=== PATIENT | male | born 1955 | race American Indian/Alaskan Native ===

== ENCOUNTER 2019-08-31 21:27 | Inpatient (IN) | payer SELFPAY ==
[2019-08-31 21:31] VITALS: BMI 28.6
[2019-08-31 23:42] LABS: BASO % 0.5 % (0-2.0); EOS % 2.6 % (0-4.5); HEMATOCRIT 43.8 % (35.4-49); HEMOGLOBIN 14.8 GM/dL (11.7-16.9); LYMPH % 48.7 % (8-40); MCH 29.8 pg (25.7-33.7); MCHC 33.7 g/dl (32.0-35.9); MEAN CELL VOLUME 88.5 fl (80-96); MEAN PLT VOLUME 8.2 fl (7.5-11.1); MONO % 10.6 % (3.8-10.2); NEUT % 37.6 % (42.8-82.8); PLATELET COUNT 255 K/MM3 (134-434); RBC 4.95 M/mm3 (4.00-5.60); RDW 13.6 % (11.9-15.9); WHITE BLOOD COUNT 5.7 K/mm3 (4.0-10.0)
[2019-08-31 23:43] LABS: EPI CELLS 0.6 /HPF (0-5/HPF); HYALINE CASTS 1 /lpf (0-8); URINE APPEARANCE CLEAR; URINE BACTERIA 0.7 /hpf (NEGATIVE); URINE BILIRUBIN NEGATIVE (NEGATIVE); URINE COLOR YELLOW; URINE GLUCOSE (UA) NEGATIVE (NEGATIVE); URINE KETONE NEGATIVE (NEGATIVE); URINE LEUK ESTERASE TRACE (NEGATIVE); URINE NITRITE NEGATIVE (NEGATIVE); URINE PROTEIN NEGATIVE (NEGATIVE); URINE RBC 0 /hpf (0-4); URINE UROBILINOGEN 0.2 mg/dL (0.2-1.0); URINE WBC 1 /hpf (0-5)
[2019-09-01 00:43] LABS: ALBUMIN 4.2 g/dl (3.4-5.0); ALK PHOS 71 U/L (45-117); ANION GAP 10 MMOL/L (8-16); BILIRUBIN,TOTAL 0.8 mg/dL (0.2-1); BLOOD UREA NITROGEN 19.9 mg/dL (7-18); CALCIUM 9.4 mg/dL (8.5-10.1); CHLORIDE 99 mmol/L (98-107); CO2 25 mmol/L (21-32); CREATININE 0.9 mg/dL (0.55-1.3); GLUCOSE,RANDOM 105 mg/dL (74-106); SGOT/AST 43 U/L (15-37); SGPT/ALT 71 U/L (13-61); SODIUM 135 mmol/L (136-145); TOT PROT 7.6 g/dl (6.4-8.2)
--- NOTE | 2019-09-01 00:46 | PDOC ---
History of Present Illness - General Chief Complaint: Weakness Stated Complaint: WEAKNESS Time Seen by Provider: 08/31/19 21:59 History Source: Patient Exam Limitations: No Limitations Past History - Past Medical History Allergies/Adverse Reactions: Allergies Allergy/AdvReac Type Severity Reaction Status Date / Time No Known Allergies Allergy Verified 08/31/19 21:31 COPD: No Diabetes: Yes HTN: Yes - Psycho Social/Smoking Cessation Hx Smoking History: Never smoked *Physical Exam - Vital Signs Last Vital Signs Temp Pulse Resp BP Pulse Ox 97.4 F L 89 18 144/77 96 08/31/19 21:29 08/31/19 21:29 08/31/19 21:29 08/31/19 21:29 08/31/19 21:29 - Physical Exam General Appearance: No: Apparent Distress HEENT: positive: EOMI, VIVEK Respiratory/Chest: positive: Lungs Clear, Normal Breath Sounds. negative: Respiratory Distress Cardiovascular: positive: Regular Rhythm, Regular Rate, S1, S2. negative: Murmur Gastrointestinal/Abdominal: positive: Normal Bowel Sounds, Soft. negative: Tender, Distended, Guarding, Rebound Neurologic: positive: arts administrator II-XII NML intact, Fully Oriented, Alert, Normal Mood/ Affect, Motor Strength 5/5, Other (normal gait) ED Treatment Course - LABORATORY CBC & Chemistry Diagram: 08/31/19 23:20 08/31/19 23:20 - ADDITIONAL ORDERS Additional order review: Laboratory Results 08/31/19 08/31/19 23:28 23:20 POC Glucometer 112 Urine Color Yellow Urine Appearance Clear Urine pH 6.0 Ur Specific [place] 1.011 Urine Protein Negative Urine Glucose (UA) Negative Urine Ketones Negative Urine Blood Negative Urine Nitrite Negative Urine Bilirubin Negative Urine Urobilinogen 0.2 Ur Leukocyte Esterase Trace Urine WBC (Auto) 1 Urine RBC (Auto) 0 Urine Casts (Auto) 1 U Epithel Cells (Auto) 0.6 Urine Bacteria (Auto) 0.7 08/31/19 08/31/19 23:28 23:20 RBC 4.95 MCV 88.5 MCHC 33.7 RDW 13.6 MPV 8.2 Neutrophils % 37.6 L Lymphocytes % 48.7 H Monocytes % 10.6 H Eosinophils % 2.6 Basophils % 0.5 POC Glucometer 112 - RADIOLOGY Radiology Studies Ordered: Category Date Time Status HEAD CT WITHOUT CONTRAST [CT] Stat CT Scan 08/31/19 22:25 Taken Medical Decision Making - Medical Decision Making 64-year-old male history of hypertension and diabetes presents for feeling generalized weakness and fatigue x2 days. Patient states 2 days ago while he was working (he states he was standing at a [employer]) he felt lightheaded and had slight tongue heaviness which resolved in a few seconds. Patient did not go to the ER to get evaluated at that time. Patient comes in today as still feeling fatigue. Denies fever, URI symptoms, shortness of breath, chest pain, abdominal pain, vomiting, visual/gait changes, numbness/tingling/weakness of the extremities. Patient is a former smoker (he quit 30 years ago; patient states he used to smoke 2 packs/day for around 10 years). EKG: NSR at 79 bpm, no ST-T changes Labs reviewed and unremarkable CT head shows subacute stroke along the right frontal parietal lobe Patient will be admitted 09/01/19 00:42 Discharge - Discharge Information Problems reviewed: Yes Clinical Impression/Diagnosis: Stroke Qualifiers: CVA mechanism: unspecified Qualified Code(s): I63.9 - Cerebral infarction, unspecified Condition: Stable - Admission Yes - Follow up/Referral - Patient Discharge Instructions - Post Discharge Activity
--- NOTE | 2019-09-01 00:49 | PDOC ---
NIH Stroke Scale - Initial Evaluation Level of consciousness: Alert Ask patient the month and their age: Answers both correctly Ask patient to open & close eyes; make fist and let go: Obeys both correctly Best gaze (horizontal eye movement): Normal Visual field testing: No visual field loss Facial paresis (Show teeth/raise eyebrows/close eyes tight): Normal symmetrical movement Motor Function: Left Arm: Normal Motor Function: Right Arm: Normal (extends arm 90 (or 45) degrees for 10 seconds without drift Motor Function: Left Leg: Normal (extends leg 30 degrees for 5 seconds without drift) Motor Function: Right Leg: Normal (extends leg 30 degrees for 5 seconds without drift) Limb Ataxia: No ataxia Sensory(Use pinprick test arms,legs,trunk,face/side to side): Normal Best language (Describe picture, name items, read sentences): No Aphasia Dysarthria (read several words): Normal articulation Extinction and Inattention: No abnormality - Total Score NIH Stroke Scale Score: 0
[2019-09-01 01:05] LABS: POTASSIUM 4.2 mmol/L (3.5-5.1)
[2019-09-01] MEDS ORDERED: ASPIRIN 81 MG CHEWABLE TABLETS PO ONE (02:07)
[2019-09-01] MEDS ORDERED: SODIUM CHLORIDE 1,000 ML IV SCH (02:15)
--- NOTE | 2019-09-01 02:15 | HP ---
CHIEF COMPLAINT: Fatigue PCP: Dr. Colton Whyte HISTORY OF PRESENT ILLNESS: 64M with PMH of DM and HTN who presents today with 2 day history of worsening fatigue. Patient reports that two days earlier he was working behind the [employer] and he felt lightheaded and then his tongue became heavy for approximately 1 minute. This has never occurred to him before, and has not occurred since. Patient describes his body feeling more tired since that event. He also notes that he is slower to adjust his lateral gaze. He denies any dizziness, any changes in sensation, nausea, vomiting, headaches, and recent illnesses. Patient does endorse a significant alcohol history where he binges for periods at a time and then stops drinking. He does not feel that his weakness and tiredness is related to his alcohol intake in anyway. ER course was notable for: (1) CT Head was done which showed wedge shaped area of low attenuation in right frontoparietal lobe near the convexity likely representing infarction possibly subacute. There is a possible intraluminal thrombus present as well. Recent Travel: Denies PAST MEDICAL HISTORY: DM II, HTN FAMILY MEDICAL HISTORY: Cardiac issues in father's side of the family, HTN, and HLD PAST SURGICAL HISTORY: None Social History: Smokin pack year history, quit smoking 30 years ago Alcohol:200 ml of alcohol a day, 3x a day in recent weeks. Did not mention when last drink was. Drugs: Denies Allergies No Known Allergies Allergy (Verified 08/31/19 21:31) HOME MEDICATIONS: Metformin 500 mg BID PO REVIEW OF SYSTEMS CONSTITUTIONAL: generalized weakness Absent: fever, chills, diaphoresis, , malaise, loss of appetite, weight change HEENT: Absent: rhinorrhea, nasal congestion, throat pain, throat swelling, difficulty swallowing, mouth swelling, ear pain, eye pain, visual changes CARDIOVASCULAR: Absent: chest pain, syncope, palpitations, irregular heart rate, lightheadedness , peripheral edema RESPIRATORY: Absent: cough, shortness of breath, dyspnea with exertion, orthopnea, wheezing, stridor, hemoptysis GASTROINTESTINAL: Absent: abdominal pain, abdominal distension, nausea, vomiting, diarrhea, constipation, melena, hematochezia GENITOURINARY: Absent: dysuria, frequency, urgency, hesitancy, hematuria, flank pain, genital pain MUSCULOSKELETAL: Absent: myalgia, arthralgia, joint swelling, back pain, neck pain SKIN: Absent: rash, itching, pallor ENDOCRINE: Absent: unexplained weight gain, unexplained weight loss, heat intolerance, cold intolerance NEUROLOGIC: Absent: headache, focal weakness or paresthesias, dizziness, unsteady gait, seizure, mental status changes, bladder or bowel incontinence PHYSICAL EXAMINATION Vital Signs - 24 hr 08/31/19 21:29 Temperature 97.4 F L Pulse Rate 89 Respiratory 18 Rate Blood Pressure 144/77 O2 Sat by Pulse 96 Oximetry (%) GENERAL: Awake, alert, and fully oriented, in no acute distress. HEAD: Normal with no signs of trauma. EYES: Pupils equal, round and reactive to light, extraocular movements intact, sclera anicteric, conjunctiva clear. No lid lag. EARS, NOSE, THROAT: Ears normal, nares patent, oropharynx clear without exudates. Moist mucous membranes. NECK: Normal range of motion, supple without lymphadenopathy, JVD, or masses. LUNGS: Breath sounds equal, clear to auscultation bilaterally. No wheezes, and no crackles. No accessory muscle use. HEART: Regular rate and rhythm, normal S1 and S2 without murmur, rub or gallop. ABDOMEN: Soft, nontender, not distended, normoactive bowel sounds, no guarding, no rebound, no masses. No hepatomegaly or splenomegaly. MUSCULOSKELETAL: Normal range of motion at all joints. No bony deformities or tenderness. . UPPER EXTREMITIES: 2+ pulses, warm, well-perfused. No cyanosis. No clubbing. No peripheral edema. LOWER EXTREMITIES: 2+ pulses, warm, well-perfused. No calf tenderness. No peripheral edema. NEUROLOGICAL: Cranial nerves II-XII intact. Normal speech. Normal gait. 5/5 strength upper and lower extremities. PSYCHIATRIC: Cooperative. Good eye contact. Appropriate mood and affect. SKIN: Warm, dry, normal turgor, no rashes or lesions noted, normal capillary refill. Laboratory Results - last 24 hr 08/31/19 08/31/19 08/31/19 23:20 23:20 23:20 WBC 5.7 RBC 4.95 Hgb 14.8 Hct 43.8 MCV 88.5 MCH 29.8 MCHC 33.7 RDW 13.6 Plt Count 255 MPV 8.2 Absolute Neuts (auto) 2.1 Neutrophils % 37.6 L Lymphocytes % 48.7 H Monocytes % 10.6 H Eosinophils % 2.6 Basophils % 0.5 Nucleated RBC % 0 Sodium 135 L Potassium 4.2 Chloride 99 Carbon Dioxide 25 Anion Gap 10 BUN 19.9 H Creatinine 0.9 Est GFR (CKD-EPI)AfAm 104.98 Est GFR (CKD-EPI)NonAf 90.58 POC Glucometer Random Glucose 105 Calcium 9.4 Total Bilirubin 0.8 AST 43 H ALT 71 H Alkaline Phosphatase 71 Troponin I < 0.02 Total Protein 7.6 Albumin 4.2 Urine Color Yellow Urine Appearance Clear Urine pH 6.0 Ur Specific [place] 1.011 Urine Protein Negative Urine Glucose (UA) Negative Urine Ketones Negative Urine Blood Negative Urine Nitrite Negative Urine Bilirubin Negative Urine Urobilinogen 0.2 Ur Leukocyte Esterase Trace Urine WBC (Auto) 1 Urine RBC (Auto) 0 Urine Casts (Auto) 1 U Epithel Cells (Auto) 0.6 Urine Bacteria (Auto) 0.7 08/31/19 23:28 WBC RBC Hgb Hct MCV MCH MCHC RDW Plt Count MPV Absolute Neuts (auto) Neutrophils % Lymphocytes % Monocytes % Eosinophils % Basophils % Nucleated RBC % Sodium Potassium Chloride Carbon Dioxide Anion Gap BUN Creatinine Est GFR (CKD-EPI)AfAm Est GFR (CKD-EPI)NonAf POC Glucometer 112 Random Glucose Calcium Total Bilirubin AST ALT Alkaline Phosphatase Troponin I Total Protein Albumin Urine Color Urine Appearance Urine pH Ur Specific [place] Urine Protein Urine Glucose (UA) Urine Ketones Urine Blood Urine Nitrite Urine Bilirubin Urine Urobilinogen Ur Leukocyte Esterase Urine WBC (Auto) Urine RBC (Auto) Urine Casts (Auto) U Epithel Cells (Auto) Urine Bacteria (Auto) ASSESSMENT/PLAN: 64 M with PMH of HTN, DM II, EtOH abuse, who presents with generalized weakness and transient episode of tongue heaviness. On imaging of his brain, there is is a right frontoparietal area of low attenuation. 1)CT Head shows right frontoparietal area of low attenuation -Admit to telemetry -Atorvastatin 40 mg PO -ASA 81 mg PO -NPO -Speech and Swallow Evaluation -F/U Echo -F/U carotid doppler -F/U Brain MRI -Neurology consulted 2)DM II -Holding home metformin -Insulin Siding Scale 3) Transaminitis -AST 43 -ALT 71 -Hep panel pending 4)Hx of Alcohol abuseb -Ativan as needed -Thiamine -Folate -Multivitamin -IV fluid hydratoin DVT: Heparin 5000 unit SQ TID Visit type - Emergency Visit Emergency Visit: Yes ED Registration Date: 09/01/19 Care time: The patient presented to the Emergency Department on the above date and was hospitalized for further evaluation of their emergent condition. - New Patient This patient is new to me today: Yes Date on this admission: 09/01/19 - Critical Care Critical Care patient: No ATTENDING PHYSICIAN STATEMENT I saw and evaluated the patient. I reviewed the resident's note and discussed the case with the resident. I agree with the resident's findings and plan as documented. SUBJECTIVE: OBJECTIVE: ASSESSMENT AND PLAN:
--- NOTE | 2019-09-01 02:16 | PDOC ---
*Physical Exam - Vital Signs Last Vital Signs Temp Pulse Resp BP Pulse Ox 97.4 F L 89 18 144/77 96 08/31/19 21:29 08/31/19 21:29 08/31/19 21:29 08/31/19 21:29 08/31/19 21:29 ED Treatment Course - LABORATORY CBC & Chemistry Diagram: 08/31/19 23:20 08/31/19 23:20 - ADDITIONAL ORDERS Additional order review: Laboratory Results 08/31/19 08/31/19 08/31/19 23:28 23:20 23:20 Sodium 135 L Potassium 4.2 Chloride 99 Carbon Dioxide 25 Anion Gap 10 BUN 19.9 H Creatinine 0.9 Est GFR (CKD-EPI)AfAm 104.98 Est GFR (CKD-EPI)NonAf 90.58 POC Glucometer 112 Random Glucose 105 Calcium 9.4 Total Bilirubin 0.8 AST 43 H ALT 71 H Alkaline Phosphatase 71 Troponin I < 0.02 Total Protein 7.6 Albumin 4.2 Urine Color Yellow Urine Appearance Clear Urine pH 6.0 Ur Specific [place] 1.011 Urine Protein Negative Urine Glucose (UA) Negative Urine Ketones Negative Urine Blood Negative Urine Nitrite Negative Urine Bilirubin Negative Urine Urobilinogen 0.2 Ur Leukocyte Esterase Trace Urine WBC (Auto) 1 Urine RBC (Auto) 0 Urine Casts (Auto) 1 U Epithel Cells (Auto) 0.6 Urine Bacteria (Auto) 0.7 08/31/19 08/31/19 23:28 23:20 RBC 4.95 MCV 88.5 MCHC 33.7 RDW 13.6 MPV 8.2 Neutrophils % 37.6 L Lymphocytes % 48.7 H Monocytes % 10.6 H Eosinophils % 2.6 Basophils % 0.5 POC Glucometer 112 Medical Decision Making - Medical Decision Making 09/01/19 02:08 Pt signed out to night team. I discussed the case with Dr. Newsome. Pt comes with 2 days of tongue numbness. Pt now with weakness that is generalized. He has a subacute infarct.. Pt is out of the tPA window, as well as out of the interventional surgical therapy window, and he will be admitted to our hospital for evaluation, and MRI. [facility] hospitalists are aware. Discharge - Discharge Information Problems reviewed: Yes Clinical Impression/Diagnosis: Stroke Qualifiers: CVA mechanism: unspecified Qualified Code(s): I63.9 - Cerebral infarction, unspecified Condition: Stable - Follow up/Referral - Patient Discharge Instructions - Post Discharge Activity
--- NOTE | 2019-09-01 02:50 | PN ---
Teaching Attending Note Name of Resident: Solo Siegel ATTENDING PHYSICIAN STATEMENT I saw and evaluated the patient. I reviewed the resident's note and discussed the case with the resident. I agree with the resident's findings and plan as documented. SUBJECTIVE: 64-year-old male history of hypertension And diabetes mellitus, ex-smoker, current EtOH drinkerabout 3x 200 cc bottles of liquor a week, complain of generalized weakness for the past 2 days.He said that about 3 days ago he had an episode of tongue heaviness which lasted a few seconds and quickly went away. He denied any concurrent headaches, dizziness, vertigo, or focal weaknesses.Patient reports that his generalized weakness is what prompted him to seek medical attention.He denies any history of alcohol withdrawal.He denies any problems with his gait. His NIH stroke scale upon initial presentation was reported to be 0. OBJECTIVE: Last Vital Signs Temp Pulse Resp BP Pulse Ox 97.4 F L 84 20 150/84 96 08/31/19 21:29 09/01/19 02:50 09/01/19 02:50 09/01/19 02:50 08/31/19 21:29 GENERAL: Well developed, well nourished. Awake and alert. No acute distress. HEENT: Normocephalic, atraumatic. PERRLA, EOMI. No conjunctival pallor. Sclera are non- icteric. Moist mucous membranes. Oropharynx is clear. NECK: Supple. Full ROM. No JVD. Carotid pulses 2+ and symmetric, without bruits. No thyromegaly. No lymphadenopathy. CARDIOVASCULAR: Regular rate and rhythm. No murmurs, rubs, or gallops. Distal pulses are 2+ and symmetric. PULMONARY: No evidence of respiratory distress. Lungs clear to auscultation bilaterally. No wheezing, rales or rhonchi. ABDOMINAL: Soft. Non-tender. Non-distended. No rebound or guarding. No organomegaly. Normoactive bowel sounds. MUSCULOSKELETAL Normal range of motion at all joints. No bony deformities or tenderness. No CVA tenderness. EXTREMITIES: No cyanosis. No clubbing. No edema. No calf tenderness. SKIN: Warm and dry. Normal capillary refill. No rashes. No jaundice. NEUROLOGICAL: Alert, awake, appropriate. Cranial nerves 2-12 intact. No deficits to light touch and temperature in face, upper extremities and lower extremities. No motor deficits in the in face, upper extremities and lower extremities. Normoreflexic in the upper and lower extremities. Normal speech. PSYCHIATRIC: Cooperative. Good eye contact. Appropriate mood and affect. Abnormal Lab Results 08/31/19 08/31/19 23:20 23:20 Neutrophils % 37.6 L Lymphocytes % 48.7 H Monocytes % 10.6 H Sodium 135 L BUN 19.9 H AST 43 H ALT [address] was reviewedpositive for cerebral atrophy, chronic microvascular ischemic changes. Wedge-shaped area of low attenuation in the right frontoparietal lobe near the convexity likely representing an infarction, possibly subacute. Slight hyperdensity of the right perisylvian middle cerebral artery branch could represent intraluminal thrombus. ASSESSMENT AND PLAN: 64-year-old male with EtOH abuse presenting with generalized weakness and rather remote, isolated complaint of tongue heaviness which I suspect is unrelated to his current presentation. Incidentally found right frontoparietal area of low-attenuation which is probably an old finding. However given history of tongue heaviness along with risk factors of history of prolonged heavy smoking and hypertension and diabetes mellitus would be advisable to admit to telemetry at this time for possible CVA. Admit to telemetry High-dose statin Aspirin N.p.o. Speech and swallow eval Echo Carotid Doppler BP control Glucose control with NovoLog sliding scale Neurology evaluation Would consider brain MRI #Transaminitissuspect may be secondary to EtOH abuse versus [place]. Should rule out viral hepatitis Liver sonogram Send hepatitis B and C serologies Trend hepatic panel Avoid hepatotoxic medications #EtOH abuse CIWA Ativan as needed Thiamine and folate and multivitamin IV fluid hydration DVT prophylaxis with heparin subcutaneously
[2019-09-01 02:59] LABS: URINE APPEARANCE CLEAR; URINE BILIRUBIN NEGATIVE (NEGATIVE); URINE COLOR YELLOW; URINE GLUCOSE (UA) NEGATIVE (NEGATIVE); URINE KETONE NEGATIVE (NEGATIVE); URINE LEUK ESTERASE NEGATIVE (NEGATIVE); URINE NITRITE NEGATIVE (NEGATIVE); URINE PROTEIN NEGATIVE (NEGATIVE); URINE UROBILINOGEN 0.2 mg/dL (0.2-1.0)
[2019-09-01] MEDS ORDERED: LORazepam 2 MG/ML SDV VIAL IVPUSH PRN (04:08)
[2019-09-01] MEDS ORDERED: FOLIC ACID INJECTION - 1 MG, THIAMINE HCL 100 MG, MULTIVIT INJECTION ADULT 10 ML in SOD... IVPB ONE (04:08)
[2019-09-01] MEDS: INSULIN SLIDING SCALE (NOVOLOG) 1 VIAL SQ SCH ×4 (07:31→21:20)
[2019-09-01 09:02] LABS: CHOLESTEROL 201 mg/dL (50-200); HDL CHOLESTEROL 44 mg/dL (40-60); LDL CHOLESTEROL (ONLY SJRH) 138 mg/dL (5-100); TRIGLYCERIDES 79 mg/dL (0-150)
[2019-09-01] MEDS: MULTIVITAMINS (DAILY MVI) TABLET (FP) PO SCH (10:02)
[2019-09-01] MEDS: FOLIC ACID 1 MG TABLET (FP) PO SCH (10:02)
[2019-09-01] MEDS: ASPIRIN COATED 81 MG TABLET.EC PO SCH (10:02)
[2019-09-01] MEDS: THIAMINE HCL 100 MG TABLET (FP) PO SCH (10:02)
--- NOTE | 2019-09-01 10:16 | EKG ---
Test Reason : Blood Pressure : / mmHG Vent. Rate : 080 BPM Atrial Rate : 080 BPM P-R Int : 186 ms QRS Dur : 098 ms QT Int : 388 ms P-R-T Axes : 068 080 055 degrees QTc Int : 447 ms NORMAL SINUS RHYTHM POSSIBLE LEFT ATRIAL ENLARGEMENT BORDERLINE ECG NO PREVIOUS ECGS AVAILABLE Confirmed by DG GRANGER, SUMIT ([id number]) on 09/01/2019 10:15:53 AM Referred By: Confirmed By:SUMIT CONTE MD
--- NOTE | 2019-09-01 11:17 | CONSULT ---
Consult - text type - Consultation Consultation Note: Neurology CHIEF COMPLAINT: Fatigue PCP: Dr. Colton Whyte HISTORY OF PRESENT ILLNESS: 64M with PMH of DM and HTN who presented on day of admission with 2 day history of worsening fatigue. Patient reported that two days prior to admission , he was working behind the [employer] and he felt lightheaded and then his tongue became heavy for approximately 1 minute. This has never occurred to him before, and has not occurred since. Patient describes his body feeling more tired since that event. He also notes that he is slower to adjust his lateral gaze. He denies any dizziness, any changes in sensation, nausea, vomiting, headaches, and recent illnesses. Patient does endorse a significant alcohol history where he binges for periods at a time and then stops drinking. He does not feel that his weakness and tiredness is related to his alcohol intake in anyway. Head CT completed which indicates wedge shaped area of low attenuation in right frontoparietal lobe near the convexity likely representing infarction possibly subacute. There is a possible intraluminal thrombus mentioned but symptoms > 48 hours. Contacted by ER at 2am on 09/01, discussed with Dr. Burch, patient out of window for TPA and out of window for endovascular therefore admitted for CVA work up. Cartoid Doppler ordered. LDL level elevated 138, pt on statin 40mg daily, BUN slightly elevated at 19. AST/ALT levels elevated 43/ 71. Discussed with patient need for further work up. Does not take a daily ASA and advised ASA 81mg daily and patient in agreement. Very eager to leave. Also discussed with hospitalist who was trying to speak with family to convinence patient to stay and complete remainder of work up. Echo may not be completed until Tuesday. Advised patient that remaining in hospital for work up is in his best interest as he has CVA noted on imaging. Recent Travel: Denies PAST MEDICAL HISTORY: DM II, HTN FAMILY MEDICAL HISTORY: Cardiac issues in father's side of the family, HTN, and HLD PAST SURGICAL HISTORY: None Social History: Smokin pack year history, quit smoking 30 years ago Alcohol:200 ml of alcohol a day, 3x a day in recent weeks. Did not mention when last drink was. Drugs: Denies Allergies No Known Allergies Allergy (Verified 08/31/19 21:31) HOME MEDICATIONS: Ambulatory Orders metFORMIN HCL [Metformin HCl] 500 mg PO BID 09/01/19 Active Medications Aspirin (Ecotrin -) 81 mg PO DAILY [facility] Last Admin: 09/01/19 10:02 Dose: 81 mg Atorvastatin Calcium (Lipitor -) 40 mg PO [facility] Folic Acid (Folic Acid -) 1 mg PO DAILY [facility] Last Admin: 09/01/19 10:02 Dose: 1 mg Sodium Chloride (Normal Saline -) 1,000 mls @ 42 mls/hr IV ASDIR [facility] Last Admin: 09/01/19 02:34 Dose: 42 mls/hr Folic Acid 1 mg/ Thiamine HCl 100 mg/ Multivitamins/Minerals 10 ml/ Sodium Chloride 1,000 mls @ 125 mls/hr IVPB ONCE ONE Stop: 09/01/19 12:07 Last Admin: 09/01/19 04:56 Dose: 125 mls/hr Insulin Aspart (Novolog Vial Sliding Scale -) 1 vial SQ ACHS [facility]; Protocol Last Admin: 09/01/19 07:31 Dose: Not Given Lorazepam (Ativan Injection -) 1 mg IVPUSH Q6H PRN PRN Reason: ANXIETY Multivitamins/Minerals/Vitamin C (Tab-A-Vit -) 1 tab PO DAILY [facility] Last Admin: 09/01/19 10:02 Dose: 1 tab Thiamine HCl (Vitamin B1 -) 100 mg PO DAILY [facility] Last Admin: 09/01/19 10:02 Dose: 100 mg REVIEW OF SYSTEMS CONSTITUTIONAL: generalized weakness Absent: fever, chills, diaphoresis, , malaise, loss of appetite, weight change HEENT: Absent: rhinorrhea, nasal congestion, throat pain, throat swelling, difficulty swallowing, mouth swelling, ear pain, eye pain, visual changes CARDIOVASCULAR: Absent: chest pain, syncope, palpitations, irregular heart rate, lightheadedness , peripheral edema RESPIRATORY: Absent: cough, shortness of breath, dyspnea with exertion, orthopnea, wheezing, stridor, hemoptysis GASTROINTESTINAL: Absent: abdominal pain, abdominal distension, nausea, vomiting, diarrhea, constipation, melena, hematochezia GENITOURINARY: Absent: dysuria, frequency, urgency, hesitancy, hematuria, flank pain, genital pain MUSCULOSKELETAL: Absent: myalgia, arthralgia, joint swelling, back pain, neck pain SKIN: Absent: rash, itching, pallor ENDOCRINE: Absent: unexplained weight gain, unexplained weight loss, heat intolerance, cold intolerance NEUROLOGIC: Absent: headache, focal weakness or paresthesias, dizziness, unsteady gait, seizure, mental status changes, bladder or bowel incontinence PHYSICAL EXAMINATION Vital Signs Period Temp Pulse Resp BP Sys/Curtis Pulse Ox Last 24 Hr 97.4 F-98.0 F 74-89 16-20 103-150/48-84 95-97 GENERAL: Awake, alert, and fully oriented, in no acute distress. HEAD: Normal with no signs of trauma. EYES: Pupils equal, round and reactive to light, extraocular movements intact, sclera anicteric, conjunctiva clear. No lid lag. EARS, NOSE, THROAT: Ears normal, nares patent, oropharynx clear without exudates. Moist mucous membranes. NECK: Normal range of motion, supple without lymphadenopathy, JVD, or masses. LUNGS: Breath sounds equal, clear to auscultation bilaterally. No wheezes, and no crackles. No accessory muscle use. HEART: Regular rate and rhythm, normal S1 and S2 without murmur, rub or gallop. ABDOMEN: Soft, nontender, not distended, normoactive bowel sounds, no guarding, no rebound, no masses. No hepatomegaly or splenomegaly. MUSCULOSKELETAL: Normal range of motion at all joints. No bony deformities or tenderness. . UPPER EXTREMITIES: 2+ pulses, warm, well-perfused. No cyanosis. No clubbing. No peripheral edema. LOWER EXTREMITIES: 2+ pulses, warm, well-perfused. No calf tenderness. No peripheral edema. NEUROLOGICAL: Cranial nerves II-XII intact. Normal speech. Normal gait. 5/5 strength upper and lower extremities. PSYCHIATRIC: Cooperative. Good eye contact. Appropriate mood and affect. SKIN: Warm, dry, normal turgor, no rashes or lesions noted, normal capillary refill. CBCD WBC 5.7 K/mm3 (4.0-10.0) 08/31/19 23:20 RBC 4.95 M/mm3 (4.00-5.60) 08/31/19 23:20 Hgb 14.8 GM/dL (11.7-16.9) 08/31/19 23:20 Hct 43.8 % (35.4-49) 08/31/19 23:20 MCV 88.5 fl (80-96) 08/31/19 23:20 MCHC 33.7 g/dl (32.0-35.9) 08/31/19 23:20 RDW 13.6 % (11.9-15.9) 08/31/19 23:20 Plt Count 255 K/MM3 (134-434) 08/31/19 23:20 MPV 8.2 fl (7.5-11.1) 08/31/19 23:20 CMP Sodium 135 mmol/L (136-145) L 08/31/19 23:20 Potassium 4.2 mmol/L (3.5-5.1) 08/31/19 23:20 Chloride 99 mmol/L (98-107) 08/31/19 23:20 Carbon Dioxide 25 mmol/L (21-32) 08/31/19 23:20 Anion Gap 10 MMOL/L (8-16) 08/31/19 23:20 BUN 19.9 mg/dL (7-18) H 08/31/19 23:20 Creatinine 0.9 mg/dL (0.55-1.3) 08/31/19 23:20 Random Glucose 105 mg/dL (74-106) 08/31/19 23:20 Calcium 9.4 mg/dL (8.5-10.1) 08/31/19 23:20 Total Bilirubin 0.8 mg/dL (0.2-1) 08/31/19 23:20 AST 43 U/L (15-37) H 08/31/19 23:20 ALT 71 U/L (13-61) H 08/31/19 23:20 Alkaline Phosphatase 71 U/L (45-117) 08/31/19 23:20 Total Protein 7.6 g/dl (6.4-8.2) 08/31/19 23:20 Albumin 4.2 g/dl (3.4-5.0) 08/31/19 23:20 CARDIAC ENZYMES Troponin I < 0.02 ng/ml (0.00-0.05) 08/31/19 23:20 ASSESSMENT/PLAN: 64M with PMH of DM and HTN who presented on day of admission with 2 day history of worsening fatigue. Patient reported that two days prior to admission , he was working behind the [employer] and he felt lightheaded and then his tongue became heavy for approximately 1 minute. This has never occurred to him before, and has not occurred since. Patient describes his body feeling more tired since that event. He also notes that he is slower to adjust his lateral gaze. He denies any dizziness, any changes in sensation, nausea, vomiting, headaches, and recent illnesses. Patient does endorse a significant alcohol history where he binges for periods at a time and then stops drinking. He does not feel that his weakness and tiredness is related to his alcohol intake in anyway. Head CT completed which indicates wedge shaped area of low attenuation in right frontoparietal lobe near the convexity likely representing infarction possibly subacute. There is a possible intraluminal thrombus mentioned but symptoms > 48 hours. Contacted by ER at 2am on 09/01, discussed with Dr. Burch, patient out of window for TPA and out of window for endovascular therefore admitted for CVA work up. Cartoid Doppler ordered. LDL level elevated 138, pt on statin 40mg daily, BUN slightly elevated at 19. AST/ALT levels elevated 43/ 71. Discussed with patient need for further work up. Does not take a daily ASA and advised ASA 81mg daily and patient in agreement. Very eager to leave. Also discussed with hospitalist who was trying to speak with family to convinence patient to stay and complete remainder of work up. Echo may not be completed until Tuesday. Advised patient that remaining in hospital for work up is in his best interest as he has CVA noted on imaging. Etoh cessation recommended, monitor for withdrawal given history of Etoh use. LDL 138, continue statin, goal LDL < 70. Monitor bp, maintian less than 160/90. Monitor glucose, maintain euglycemic range. Medication compliance needed. Speech/swallow eval. DVT ppx.
--- NOTE | 2019-09-01 13:03 | PN ---
Progress Note (short form) - Note Progress Note: SUBJECTIVE: Feels better -no further tongue heaviness. No headache/visual disturbance/limb numbness, weakness, tingling. [place] speaking. OBJECTIVE: Afebrile, Hemodynamically Stable. Last Vital Signs Temp Pulse Resp BP Pulse Ox 98.0 F 84 16 123/71 97 09/01/19 09:45 09/01/19 09:45 09/01/19 09:45 09/01/19 09:45 09/01/19 09:45 HEENT - Atraumatic, Normocephalic. Heart - S1 S2 RRR Lungs - clear to auscultation Abdomen - soft, non-tender. Bowel Sounds normal. Extremities - no calf swelling/tenderness Neuro - AAO x 3. Tone/Power normal all extremities. Laboratory Results - last 24 hr 08/31/19 08/31/19 08/31/19 23:20 23:20 23:20 WBC 5.7 RBC 4.95 Hgb 14.8 Hct 43.8 MCV 88.5 MCH 29.8 MCHC 33.7 RDW 13.6 Plt Count 255 MPV 8.2 Absolute Neuts (auto) 2.1 Neutrophils % 37.6 L Lymphocytes % 48.7 H Monocytes % 10.6 H Eosinophils % 2.6 Basophils % 0.5 Nucleated RBC % 0 Sodium 135 L Potassium 4.2 Chloride 99 Carbon Dioxide 25 Anion Gap 10 BUN 19.9 H Creatinine 0.9 Est GFR (CKD-EPI)AfAm 104.98 Est GFR (CKD-EPI)NonAf 90.58 POC Glucometer Random Glucose 105 Calcium 9.4 Total Bilirubin 0.8 AST 43 H ALT 71 H Alkaline Phosphatase 71 Troponin I < 0.02 Total Protein 7.6 Albumin 4.2 Triglycerides Cholesterol Total LDL Cholesterol HDL Cholesterol Urine Color Yellow Urine Appearance Clear Urine pH 6.0 Ur Specific [place] 1.011 Urine Protein Negative Urine Glucose (UA) Negative Urine Ketones Negative Urine Blood Negative Urine Nitrite Negative Urine Bilirubin Negative Urine Urobilinogen 0.2 Ur Leukocyte Esterase Trace Urine WBC (Auto) 1 Urine RBC (Auto) 0 Urine Casts (Auto) 1 U Epithel Cells (Auto) 0.6 Urine Bacteria (Auto) 0.7 08/31/19 09/01/19 09/01/19 23:28 02:50 04:29 WBC RBC Hgb Hct MCV MCH MCHC RDW Plt Count MPV Absolute Neuts (auto) Neutrophils % Lymphocytes % Monocytes % Eosinophils % Basophils % Nucleated RBC % Sodium Potassium Chloride Carbon Dioxide Anion Gap BUN Creatinine Est GFR (CKD-EPI)AfAm Est GFR (CKD-EPI)NonAf POC Glucometer 112 105 Random Glucose Calcium Total Bilirubin AST ALT Alkaline Phosphatase Troponin I Total Protein Albumin Triglycerides Cholesterol Total LDL Cholesterol HDL Cholesterol Urine Color Yellow Urine Appearance Clear Urine pH 6.0 Ur Specific [place] 1.020 Urine Protein Negative Urine Glucose (UA) Negative Urine Ketones Negative Urine Blood Negative Urine Nitrite Negative Urine Bilirubin Negative Urine Urobilinogen 0.2 Ur Leukocyte Esterase Negative Urine WBC (Auto) Urine RBC (Auto) Urine Casts (Auto) U Epithel Cells (Auto) Urine Bacteria (Auto) 09/01/19 09/01/19 09/01/19 05:34 06:43 11:22 WBC RBC Hgb Hct MCV MCH MCHC RDW Plt Count MPV Absolute Neuts (auto) Neutrophils % Lymphocytes % Monocytes % Eosinophils % Basophils % Nucleated RBC % Sodium Potassium Chloride Carbon Dioxide Anion Gap BUN Creatinine Est GFR (CKD-EPI)AfAm Est GFR (CKD-EPI)NonAf POC Glucometer 126 170 Random Glucose Calcium Total Bilirubin AST ALT Alkaline Phosphatase Troponin I Total Protein Albumin Triglycerides 79 Cholesterol 201 H Total LDL Cholesterol 138 H HDL Cholesterol 44 Urine Color Urine Appearance Urine pH Ur Specific [place] Urine Protein Urine Glucose (UA) Urine Ketones Urine Blood Urine Nitrite Urine Bilirubin Urine Urobilinogen Ur Leukocyte Esterase Urine WBC (Auto) Urine RBC (Auto) Urine Casts (Auto) U Epithel Cells (Auto) Urine Bacteria (Auto) Current Medications Generic Name Dose Route Start Last Admin Trade Name Jayne PRN Reason Stop Dose Admin Aspirin 81 mg 09/01/19 10:00 09/01/19 10:02 Ecotrin - PO 81 mg DAILY [facility] Administration Atorvastatin Calcium 40 mg 09/01/19 22:00 Lipitor - PO HS [facility] Folic Acid 1 mg 09/01/19 10:00 09/01/19 10:02 Folic Acid - PO 1 mg DAILY [facility] Administration Sodium Chloride 1,000 mls @ 42 mls/hr 09/01/19 02:15 09/01/19 02:34 Normal Saline - IV 42 mls/hr ASDIR [facility] Administration Insulin Aspart 1 vial 09/01/19 07:00 09/01/19 07:31 Novolog Vial Sliding Scale - SQ Not Given ACHS [facility] Protocol Lorazepam 1 mg 09/01/19 04:08 Ativan Injection - IVPUSH Q6H PRN ANXIETY Multivitamins/Minerals/Vitamin C 1 tab 09/01/19 10:00 09/01/19 10:02 Tab-A-Vit - PO 1 tab DAILY [facility] Administration Thiamine HCl 100 mg 09/01/19 10:00 09/01/19 10:02 Vitamin B1 - PO 100 mg DAILY [facility] Administration Home Medications Medication Instructions Recorded metFORMIN HCL [Metformin HCl] 500 mg PO BID 09/01/19 ASSESSMENT/PLAN: 64 year old male with history of DM 2, Ex-smoker, currentl Alcohol excess, admitted with generalized weakness and reported tongue heaviness 2 days prior to presentation, now resolved. No BURGESS/dizziness/limb numbness/weakness/tingling. No visual disturbance. CT Head - positive for cerebral atrophy, chronic microvascular ischemic changes. Wedge-shaped area of low attenuation in the right frontoparietal lobe near the convexity likely representing an infarction, possibly subacute. Slight hyperdensity of the right perisylvian middle cerebral artery branch could represent intraluminal thrombus. 1. Acute/Subacute CVA No discernible deficits - NIHSS 0 currently Telemonitoring Echo with bubble study MRI/MRA Brain Carotid Duplex ST/PT LDL 138 Started on Aspirin/Statin (started at 40mg instead of 80mg due to elevated transaminases). Will monitor BP to ensure tight control. Neuro eval. 2. DM 2 - Metformin held. Maintain on Novolog sliding scale. 3. Elevated Transaminases in setting of Alcohol Excess Hx No signs of withdrawal - will monitor. MVI/Thiamine/Folate. Abdo US, Hepatitis panel. DVT Px - Heparin SQ Visit type - Emergency Visit Emergency Visit: Yes ED Registration Date: 09/01/19 Care time: The patient presented to the Emergency Department on the above date and was hospitalized for further evaluation of their emergent condition. - New Patient This patient is new to me today: Yes Date on this admission: 09/01/19 - Critical Care Critical Care patient: No - Discharge Referral Referred to [facility] No
[2019-09-01] MEDS: HEPARIN NA (PORCINE) 5,000 UNITS/ML 1ML VIAL SQ SCH ×2 (14:50→21:21)
[2019-09-01] MEDS ORDERED: INSULIN (NOVOLOG) ASPART 100 UNITS/ML 10ML VIAL ONE (21:15)
[2019-09-01] MEDS: ATORVASTATIN CA 40 MG TABLET (FP) PO SCH (21:20)
[2019-09-02] MEDS: INSULIN SLIDING SCALE (NOVOLOG) 1 VIAL SQ SCH ×4 (06:12→21:54)
[2019-09-02] MEDS: HEPARIN NA (PORCINE) 5,000 UNITS/ML 1ML VIAL SQ SCH ×3 (06:12→21:45)
[2019-09-02] MEDS: MULTIVITAMINS (DAILY MVI) TABLET (FP) PO SCH (10:14)
[2019-09-02] MEDS: FOLIC ACID 1 MG TABLET (FP) PO SCH (10:14)
[2019-09-02] MEDS: ASPIRIN COATED 81 MG TABLET.EC PO SCH (10:15)
[2019-09-02] MEDS: THIAMINE HCL 100 MG TABLET (FP) PO SCH (10:15)
--- NOTE | 2019-09-02 10:38 | PN ---
Progress Note (short form) - Note Progress Note: Neurology CHIEF COMPLAINT: Fatigue PCP: Dr. Colton Whyte HISTORY OF PRESENT ILLNESS: 64M with PMH of DM and HTN who presented on day of admission with 2 day history of worsening fatigue. Patient reported that two days prior to admission , he was working behind the [employer] and he felt lightheaded and then his tongue became heavy for approximately 1 minute. This has never occurred to him before, and has not occurred since. Patient describes his body feeling more tired since that event. He also notes that he is slower to adjust his lateral gaze. He denies any dizziness, any changes in sensation, nausea, vomiting, headaches, and recent illnesses. Patient does endorse a significant alcohol history where he binges for periods at a time and then stops drinking. He does not feel that his weakness and tiredness is related to his alcohol intake in anyway. Head CT completed which indicates wedge shaped area of low attenuation in right frontoparietal lobe near the convexity likely representing infarction possibly subacute. There is a possible intraluminal thrombus mentioned but symptoms > 48 hours. Contacted by ER at 2am on 09/01, discussed with Dr. Burch, patient out of window for TPA and out of window for endovascular therefore admitted for CVA work up. Cartoid Doppler ordered. LDL level elevated 138, pt on statin 40mg daily, BUN slightly elevated at 19. AST/ALT levels elevated 43/ 71. Discussed with patient need for further work up. Does not take a daily ASA and advised ASA 81mg daily and patient in agreement. Very eager to leave. Brain MRI/MRA completed, abnormal restricted diffusion with nyperintense flair in the frontal lob involving precentral gyrus indicating acute infarct; patent central segments of the anterior and posterior circulation with no significant stenosis , mild chronic microvascular ischemic changes. Carotid Doppler completed, intimal thickening and small plaques at the left common carotid bifurcation with no significant stenosis bilaterally. Echo pending and hopefully to be completed Tuesday. Again, discussed with patient the importance of medication compliance and since we initiated aspirin 81 mg daily. I reinforced to him that it should be continued as an outpatient. Also discussed this with the resident who will reinforcewith the patient as well. Active Medications Aspirin (Ecotrin -) 81 mg PO DAILY [facility] Last Admin: 09/02/19 10:15 Dose: 81 mg Atorvastatin Calcium (Lipitor -) 40 mg PO HS [facility] Last Admin: 09/01/19 21:20 Dose: 40 mg Folic Acid (Folic Acid -) 1 mg PO DAILY [facility] Last Admin: 09/02/19 10:14 Dose: 1 mg Heparin Sodium (Porcine) (Heparin -) 5,000 unit SQ TID [facility] Last Admin: 09/02/19 06:12 Dose: 5,000 unit Insulin Aspart (Novolog Vial Sliding Scale -) 1 vial SQ ACHS [facility]; Protocol Last Admin: 09/02/19 06:12 Dose: Not Given Lorazepam (Ativan Injection -) 1 mg IVPUSH Q6H PRN PRN Reason: ANXIETY Multivitamins/Minerals/Vitamin C (Tab-A-Vit -) 1 tab PO DAILY [facility] Last Admin: 09/02/19 10:14 Dose: 1 tab Thiamine HCl (Vitamin B1 -) 100 mg PO DAILY [facility] Last Admin: 09/02/19 10:15 Dose: 100 mg PHYSICAL EXAMINATION Vital Signs Period Temp Pulse Resp BP Sys/Curtis Pulse Ox Last 24 Hr 97.9 F-98.2 F 78-96 16-20 111-139/69-80 95-98 GENERAL: Awake, alert, and fully oriented, in no acute distress. HEAD: Normal with no signs of trauma. EYES: Pupils equal, round and reactive to light, extraocular movements intact, sclera anicteric, conjunctiva clear. No lid lag. EARS, NOSE, THROAT: Ears normal, nares patent, oropharynx clear without exudates. Moist mucous membranes. NECK: Normal range of motion, supple without lymphadenopathy, JVD, or masses. LUNGS: Breath sounds equal, clear to auscultation bilaterally. No wheezes, and no crackles. No accessory muscle use. HEART: Regular rate and rhythm, normal S1 and S2 without murmur, rub or gallop. ABDOMEN: Soft, nontender, not distended, normoactive bowel sounds, no guarding, no rebound, no masses. No hepatomegaly or splenomegaly. MUSCULOSKELETAL: Normal range of motion at all joints. No bony deformities or tenderness. . UPPER EXTREMITIES: 2+ pulses, warm, well-perfused. No cyanosis. No clubbing. No peripheral edema. LOWER EXTREMITIES: 2+ pulses, warm, well-perfused. No calf tenderness. No peripheral edema. NEUROLOGICAL: Cranial nerves II-XII intact. Normal speech. Normal gait. 5/5 strength upper and lower extremities. PSYCHIATRIC: Cooperative. Good eye contact. Appropriate mood and affect. SKIN: Warm, dry, normal turgor, no rashes or lesions noted, normal capillary refill. CBCD WBC 5.7 K/mm3 (4.0-10.0) 08/31/19 23:20 RBC 4.95 M/mm3 (4.00-5.60) 08/31/19 23:20 Hgb 14.8 GM/dL (11.7-16.9) 08/31/19 23:20 Hct 43.8 % (35.4-49) 08/31/19 23:20 MCV 88.5 fl (80-96) 08/31/19 23:20 MCHC 33.7 g/dl (32.0-35.9) 08/31/19 23:20 RDW 13.6 % (11.9-15.9) 08/31/19 23:20 Plt Count 255 K/MM3 (134-434) 08/31/19 23:20 MPV 8.2 fl (7.5-11.1) 08/31/19 23:20 CMP Sodium 135 mmol/L (136-145) L 08/31/19 23:20 Potassium 4.2 mmol/L (3.5-5.1) 08/31/19 23:20 Chloride 99 mmol/L (98-107) 08/31/19 23:20 Carbon Dioxide 25 mmol/L (21-32) 08/31/19 23:20 Anion Gap 10 MMOL/L (8-16) 08/31/19 23:20 BUN 19.9 mg/dL (7-18) H 08/31/19 23:20 Creatinine 0.9 mg/dL (0.55-1.3) 08/31/19 23:20 Random Glucose 105 mg/dL (74-106) 08/31/19 23:20 Calcium 9.4 mg/dL (8.5-10.1) 08/31/19 23:20 Total Bilirubin 0.8 mg/dL (0.2-1) 08/31/19 23:20 AST 43 U/L (15-37) H 08/31/19 23:20 ALT 71 U/L (13-61) H 08/31/19 23:20 Alkaline Phosphatase 71 U/L (45-117) 08/31/19 23:20 Total Protein 7.6 g/dl (6.4-8.2) 08/31/19 23:20 Albumin 4.2 g/dl (3.4-5.0) 08/31/19 23:20 CARDIAC ENZYMES Troponin I < 0.02 ng/ml (0.00-0.05) 08/31/19 23:20 ASSESSMENT/PLAN: 64M with PMH of DM and HTN who presented on day of admission with 2 day history of worsening fatigue. Patient reported that two days prior to admission , he was working behind the [employer] and he felt lightheaded and then his tongue became heavy for approximately 1 minute. This has never occurred to him before, and has not occurred since. Patient describes his body feeling more tired since that event. He also notes that he is slower to adjust his lateral gaze. He denies any dizziness, any changes in sensation, nausea, vomiting, headaches, and recent illnesses. Patient does endorse a significant alcohol history where he binges for periods at a time and then stops drinking. He does not feel that his weakness and tiredness is related to his alcohol intake in anyway. Head CT completed which indicates wedge shaped area of low attenuation in right frontoparietal lobe near the convexity likely representing infarction possibly subacute. There is a possible intraluminal thrombus mentioned but symptoms > 48 hours. Contacted by ER at 2am on 09/01, discussed with Dr. Burch, patient out of window for TPA and out of window for endovascular therefore admitted for CVA work up. Cartoid Doppler ordered. LDL level elevated 138, pt on statin 40mg daily, BUN slightly elevated at 19. AST/ALT levels elevated 43/ 71. Discussed with patient need for further work up. Does not take a daily ASA and advised ASA 81mg daily and patient in agreement. Very eager to leave. Also discussed with hospitalist who was trying to speak with family to convince patient to stay and complete remainder of work up. Echo may not be completed until Tuesday. Advised patient that remaining in hospital for work up is in his best interest as he has CVA noted on imaging. Brain MRI/MRA completed, abnormal restricted diffusion with nyperintense flair in the frontal lob involving precentral gyrus indicating acute infarct; patent central segments of the anterior and posterior circulation with no significant stenosis, mild chronic microvascular ischemic changes. Carotid Doppler completed, intimal thickening and small plaques at the left common carotid bifurcation with significant stenosis bilaterally. Echo pending and hopefully to be completed Tuesday. Again, discussed with patient the importance of medication compliance and since we initiated aspirin 81 mg daily. I reinforced to him that it should be continued as an outpatient. Also discussed this with the resident who will reinforcewith the patient as well. Etoh cessation recommended, monitor for withdrawal given history of Etoh use. LDL 138, continue statin, goal LDL < 70. Monitor bp, maintain less than 160/90. Monitor glucose, maintain euglycemic range.
--- NOTE | 2019-09-02 11:41 | PN ---
Teaching Attending Note Name of Resident: Nimesh Palencia ATTENDING PHYSICIAN STATEMENT I saw and evaluated the patient. I reviewed the resident's note and discussed the case with the resident. I agree with the resident's findings and plan as documented. SUBJECTIVE: Feels better - no further tongue heaviness. No headache/visual disturbance/limb numbness, weakness, tingling. Armenian speaking. OBJECTIVE: Afebrile, Hemodynamically Stable. Last Vital Signs Temp Pulse Resp BP Pulse Ox 97.2 F L 87 18 124/72 96 09/02/19 10:00 09/02/19 10:00 09/02/19 10:00 09/02/19 10:00 09/01/19 21:00 Heart - S1 S2 RRR Lungs - clear to auscultation Abdomen - soft, non-tender. Bowel Sounds normal. Extremities - no calf swelling/tenderness Neuro - AAO x 3. Tone/Power normal all extremities. Mlld facial asymmetry. Laboratory Results - last 24 hr 09/01/19 09/01/19 09/01/19 05:34 13:00 17:53 POC Glucometer 150 162 Hemoglobin A1c % Hep A IgM Ab Confirm Negative Hep Bs Antigen Positive H Hep B Core IgM Ab Negative Hepatitis C Ab (EIA) <0.1 09/01/19 09/02/19 09/02/19 20:57 06:00 06:12 POC Glucometer 161 136 Hemoglobin A1c % 7.3 H Hep A IgM Ab Confirm Hep Bs Antigen Hep B Core IgM Ab Hepatitis C Ab (EIA) 09/02/19 11:36 POC Glucometer 285 Hemoglobin A1c % Hep A IgM Ab Confirm Hep Bs Antigen Hep B Core IgM Ab Hepatitis C Ab (EIA) Current Medications Generic Name Dose Route Start Last Admin Trade Name Niranjanq PRN Reason Stop Dose Admin Aspirin 81 mg 09/01/19 10:00 09/02/19 10:15 Ecotrin - PO 81 mg DAILY REFUGIO Administration Atorvastatin Calcium 40 mg 09/01/19 22:00 09/01/19 21:20 Lipitor - PO 40 mg HS REFUGIO Administration Folic Acid 1 mg 09/01/19 10:00 09/02/19 10:14 Folic Acid - PO 1 mg DAILY REFUGIO Administration Heparin Sodium (Porcine) 5,000 unit 09/01/19 14:00 09/02/19 06:12 Heparin - SQ 5,000 unit TID REFUGIO Administration Insulin Aspart 1 vial 09/01/19 07:00 09/02/19 06:12 Novolog Vial Sliding Scale - SQ Not Given ACHS [facility] Protocol Lorazepam 1 mg 09/01/19 04:08 Ativan Injection - IVPUSH Q6H PRN ANXIETY Multivitamins/Minerals/Vitamin C 1 tab 09/01/19 10:00 09/02/19 10:14 Tab-A-Vit - PO 1 tab DAILY REFUGIO Administration Thiamine HCl 100 mg 09/01/19 10:00 09/02/19 10:15 Vitamin B1 - PO 100 mg DAILY REFUGIO Administration Home Medications Medication Instructions Recorded metFORMIN HCL [Metformin HCl] 500 mg PO BID 09/01/19 ASSESSMENT/PLAN: 64 year old male with history of DM 2, Ex-smoker, current Alcohol excess, admitted with generalized weakness and reported tongue heaviness 2 days prior to presentation, now resolved. No BURGESS/dizziness/limb numbness/weakness/tingling. No visual disturbance. CT Head - positive for cerebral atrophy, chronic microvascular ischemic changes. Wedge-shaped area of low attenuation in the right frontoparietal lobe near the convexity likely representing an infarction, possibly subacute. Slight hyperdensity of the right perisylvian middle cerebral artery branch could represent intraluminal thrombus. 1. Acute CVA No discernible deficits - NIHSS 0/1 Telemonitoring Echo with bubble study requested MRI/MRA Brain - confirms acute non-hemorrhagic distal R MCA territory infarct. Carotid Duplex - L common carotid plaque without hemodynamically significant stenosis. ST/PT LDL 138 (goal < 70) Started on Aspirin/Statin (started at 40mg instead of 80mg due to elevated transaminases). Neuro following. 2. DM 2 - Uncontrolled, A1C 7.3. Metformin held. Maintain on Novolog sliding scale. 3. Elevated Transaminases in setting of Alcohol Excess Hx No signs of withdrawal - will monitor. MVI/Thiamine/Folate. Abdo US - fatty liver Hep Bs Ag positive unclear significance, will discuss with GI. DVT Px - Heparin SQ
--- NOTE | 2019-09-02 12:16 | PN ---
Physical Exam: SUBJECTIVE: Patient seen and examined at the bedside. Stated that he felt well and endorsed a good appetite. Denied cp, sob, abd pain, n/v/c/d, fever, chills, focal weakness, numbness, tingling, headaches, dizziness, dysphagia, dysarthria , visual deficits. OBJECTIVE: Vital Signs Period Temp Pulse Resp BP Sys/Curtis Pulse Ox Last 24 Hr 97.2 F-98.2 F 78-96 16-20 111-139/69-80 95-98 GENERAL: The patient is awake, alert, and fully oriented, in no acute distress. HEAD: Normal with no signs of trauma. EYES: PERRL, extraocular movements intact, sclera anicteric, conjunctiva clear. ENT: Oropharynx clear without exudates, moist mucous membranes. NECK: Trachea midline, full range of motion, supple. No auscultated bruits. LUNGS: Breath sounds equal, clear to auscultation bilaterally, no wheezes, no crackles, no accessory muscle use. HEART: Regular rate and rhythm, S1, S2 without murmur, rub. ABDOMEN: Soft, nontender, nondistended, normoactive bowel sounds, no guarding, no rebound, no masses. EXTREMITIES: 2+ pulses, warm, well-perfused, no edema. NEUROLOGICAL: Noted assymetry of smile with minute droop on L. CN II-XII otherwise grossly intact. 5/5 muscle strength upper and lower extremities bilaterally. No sensory deficits. FTN and HTS intact. PSYCH: Normal mood, normal affect. SKIN: Warm, dry, normal turgor, no rashes or lesions noted. Laboratory Results - last 24 hr 09/01/19 09/01/19 09/01/19 05:34 13:00 17:53 POC Glucometer 150 162 Hemoglobin A1c % Hep A IgM Ab Confirm Negative Hep Bs Antigen Positive H Hep B Core IgM Ab Negative Hepatitis C Ab (EIA) <0.1 09/01/19 09/02/19 09/02/19 20:57 06:00 06:12 POC Glucometer 161 136 Hemoglobin A1c % 7.3 H Hep A IgM Ab Confirm Hep Bs Antigen Hep B Core IgM Ab Hepatitis C Ab (EIA) 09/02/19 11:36 POC Glucometer 285 Hemoglobin A1c % Hep A IgM Ab Confirm Hep Bs Antigen Hep B Core IgM Ab Hepatitis C Ab (EIA) Active Medications Generic Name Dose Route Start Last Admin Trade Name Jayne PRN Reason Stop Dose Admin Aspirin 81 mg 09/01/19 10:00 09/02/19 10:15 Ecotrin - PO 81 mg DAILY REFUGIO Administration Atorvastatin Calcium 40 mg 09/01/19 22:00 09/01/19 21:20 Lipitor - PO 40 mg HS REFUGIO Administration Folic Acid 1 mg 09/01/19 10:00 09/02/19 10:14 Folic Acid - PO 1 mg DAILY REFUGIO Administration Heparin Sodium (Porcine) 5,000 unit 09/01/19 14:00 09/02/19 06:12 Heparin - SQ 5,000 unit TID REFUGIO Administration Insulin Aspart 1 vial 09/01/19 07:00 09/02/19 11:54 Novolog Vial Sliding Scale - SQ 6 units ACHS REFUGIO Administration Protocol Lorazepam 1 mg 09/01/19 04:08 Ativan Injection - IVPUSH Q6H PRN ANXIETY Multivitamins/Minerals/Vitamin C 1 tab 09/01/19 10:00 09/02/19 10:14 Tab-A-Vit - PO 1 tab DAILY REFUGIO Administration Thiamine HCl 100 mg 09/01/19 10:00 09/02/19 10:15 Vitamin B1 - PO 100 mg DAILY REFUGIO Administration ASSESSMENT/PLAN: Los Chung is a 64 male with a past medical history of HTN, DM II, EtOH abuse, who presents with generalized weakness and transient episode of tongue heaviness admitted for ischemic stroke workup Ischemic Stroke - CT Head shows right frontoparietal area of low attenuation - Atorvastatin 40 mg PO - ASA 81 mg PO - Speech and Swallow Evaluation - Echo pending - elevated chol, LDL, statin started - carotid doppler noting small plaques and intimal thickening at the L common carotid bifurcation with NO hemodynamically significant stenosis bilaterally - Brain MRI noting acute nonhemorrhagic R distal MCA infarct involving precentral gyrus - Neurology consulted, recs appreciated, will need to take daily aspirin and statin, and f/u outpatient with neurology - physical therapy DM II - Holding home metformin - Insulin Siding Scale - BGM - A1c 7.3 Transaminitis - AST 43, ALT 71 on admission - likely in setting of alcohol abuse - Hep panel showing previous vaccination to Hep B, no active hepatitis - U/S showing fatty liver vs hepatocellular disease, will need GI follow up Hx of Alcohol abuse - no active signs of withdrawal - Thiamine, folate, multivitamin Prophylaxis - Heparin 5000 unit sq tid FEN - no standing fluids, encourage PO intake - continue to monitor electrolytes and replete as necesssary - diabetic sodium diet Dispo - continue to monitor on telemetry Visit type - Emergency Visit Emergency Visit: Yes ED Registration Date: 09/01/19 Care time: The patient presented to the Emergency Department on the above date and was hospitalized for further evaluation of their emergent condition. - New Patient This patient is new to me today: Yes Date on this admission: 09/02/19 - Critical Care Critical Care patient: No
[2019-09-02] MEDS: ATORVASTATIN CA 40 MG TABLET (FP) PO SCH (21:45)
[2019-09-03] MEDS: HEPARIN NA (PORCINE) 5,000 UNITS/ML 1ML VIAL SQ SCH ×2 (05:19→13:12)
[2019-09-03] MEDS: INSULIN SLIDING SCALE (NOVOLOG) 1 VIAL SQ SCH ×2 (06:24→13:12)
--- NOTE | 2019-09-03 09:30 | PN ---
Progress Note (short form) - Note Progress Note: Neurology CHIEF COMPLAINT: Fatigue PCP: Dr. Colton Whyte HISTORY OF PRESENT ILLNESS: 64M with PMH of DM and HTN who presented on day of admission with 2 day history of worsening fatigue. Patient reported that two days prior to admission , he was working behind the [employer] and he felt lightheaded and then his tongue became heavy for approximately 1 minute. This has never occurred to him before, and has not occurred since. Patient describes his body feeling more tired since that event. He also notes that he is slower to adjust his lateral gaze. He denies any dizziness, any changes in sensation, nausea, vomiting, headaches, and recent illnesses. Patient does endorse a significant alcohol history where he binges for periods at a time and then stops drinking. He does not feel that his weakness and tiredness is related to his alcohol intake in anyway. Head CT completed which indicates wedge shaped area of low attenuation in right frontoparietal lobe near the convexity likely representing infarction possibly subacute. There is a possible intraluminal thrombus mentioned but symptoms > 48 hours. Contacted by ER at 2am on 09/01, discussed with Dr. Burch, patient out of window for TPA and out of window for endovascular therefore admitted for CVA work up. Cartoid Doppler ordered. LDL level elevated 138, pt on statin 40mg daily, BUN slightly elevated at 19. AST/ALT levels elevated 43/ 71. Discussed with patient need for further work up. Does not take a daily ASA and advised ASA 81mg daily and patient in agreement. Very eager to leave. Brain MRI/MRA completed, abnormal restricted diffusion with nyperintense flair in the frontal lob involving precentral gyrus indicating acute infarct; patent central segments of the anterior and posterior circulation with no significant stenosis , mild chronic microvascular ischemic changes. Carotid Doppler completed, intimal thickening and small plaques at the left common carotid bifurcation with no significant stenosis bilaterally. Echo pending and hopefully to be completed today. Again, discussed with patient the importance of medication compliance and since we initiated aspirin 81 mg daily. I reinforced to him that it should be continued as an outpatient, provided card with my office information. He reports being at baseline and without any deficits. Active Medications Aspirin (Ecotrin -) 81 mg PO DAILY [facility] Last Admin: 09/02/19 10:15 Dose: 81 mg Atorvastatin Calcium (Lipitor -) 40 mg PO HS [facility] Last Admin: 09/01/19 21:20 Dose: 40 mg Folic Acid (Folic Acid -) 1 mg PO DAILY [facility] Last Admin: 09/02/19 10:14 Dose: 1 mg Heparin Sodium (Porcine) (Heparin -) 5,000 unit SQ TID [facility] Last Admin: 09/02/19 06:12 Dose: 5,000 unit Insulin Aspart (Novolog Vial Sliding Scale -) 1 vial SQ ACHS [facility]; Protocol Last Admin: 09/02/19 06:12 Dose: Not Given Lorazepam (Ativan Injection -) 1 mg IVPUSH Q6H PRN PRN Reason: ANXIETY Multivitamins/Minerals/Vitamin C (Tab-A-Vit -) 1 tab PO DAILY [facility] Last Admin: 09/02/19 10:14 Dose: 1 tab Thiamine HCl (Vitamin B1 -) 100 mg PO DAILY [facility] Last Admin: 09/02/19 10:15 Dose: 100 mg PHYSICAL EXAMINATION Vital Signs Period Temp Pulse Resp BP Sys/Curtis Pulse Ox Last 24 Hr 97.9 F-98.2 F 78-96 16-20 111-139/69-80 95-98 GENERAL: Awake, alert, and fully oriented, in no acute distress. HEAD: Normal with no signs of trauma. EYES: Pupils equal, round and reactive to light, extraocular movements intact, sclera anicteric, conjunctiva clear. No lid lag. EARS, NOSE, THROAT: Ears normal, nares patent, oropharynx clear without exudates. Moist mucous membranes. NECK: Normal range of motion, supple without lymphadenopathy, JVD, or masses. LUNGS: Breath sounds equal, clear to auscultation bilaterally. No wheezes, and no crackles. No accessory muscle use. HEART: Regular rate and rhythm, normal S1 and S2 without murmur, rub or gallop. ABDOMEN: Soft, nontender, not distended, normoactive bowel sounds, no guarding, no rebound, no masses. No hepatomegaly or splenomegaly. MUSCULOSKELETAL: Normal range of motion at all joints. No bony deformities or tenderness. . UPPER EXTREMITIES: 2+ pulses, warm, well-perfused. No cyanosis. No clubbing. No peripheral edema. LOWER EXTREMITIES: 2+ pulses, warm, well-perfused. No calf tenderness. No peripheral edema. NEUROLOGICAL: Cranial nerves II-XII intact. Normal speech. Normal gait. 5/5 strength upper and lower extremities. PSYCHIATRIC: Cooperative. Good eye contact. Appropriate mood and affect. SKIN: Warm, dry, normal turgor, no rashes or lesions noted, normal capillary refill. CBCD WBC 5.7 K/mm3 (4.0-10.0) 08/31/19 23:20 RBC 4.95 M/mm3 (4.00-5.60) 08/31/19 23:20 Hgb 14.8 GM/dL (11.7-16.9) 08/31/19 23:20 Hct 43.8 % (35.4-49) 08/31/19 23:20 MCV 88.5 fl (80-96) 08/31/19 23:20 MCHC 33.7 g/dl (32.0-35.9) 08/31/19 23:20 RDW 13.6 % (11.9-15.9) 08/31/19 23:20 Plt Count 255 K/MM3 (134-434) 08/31/19 23:20 MPV 8.2 fl (7.5-11.1) 08/31/19 23:20 CMP Sodium 135 mmol/L (136-145) L 08/31/19 23:20 Potassium 4.2 mmol/L (3.5-5.1) 08/31/19 23:20 Chloride 99 mmol/L (98-107) 08/31/19 23:20 Carbon Dioxide 25 mmol/L (21-32) 08/31/19 23:20 Anion Gap 10 MMOL/L (8-16) 08/31/19 23:20 BUN 19.9 mg/dL (7-18) H 08/31/19 23:20 Creatinine 0.9 mg/dL (0.55-1.3) 08/31/19 23:20 Random Glucose 105 mg/dL (74-106) 08/31/19 23:20 Calcium 9.4 mg/dL (8.5-10.1) 08/31/19 23:20 Total Bilirubin 0.8 mg/dL (0.2-1) 08/31/19 23:20 AST 43 U/L (15-37) H 08/31/19 23:20 ALT 71 U/L (13-61) H 08/31/19 23:20 Alkaline Phosphatase 71 U/L (45-117) 08/31/19 23:20 Total Protein 7.6 g/dl (6.4-8.2) 08/31/19 23:20 Albumin 4.2 g/dl (3.4-5.0) 08/31/19 23:20 CARDIAC ENZYMES Troponin I < 0.02 ng/ml (0.00-0.05) 08/31/19 23:20 ASSESSMENT/PLAN: 64M with PMH of DM and HTN who presented on day of admission with 2 day history of worsening fatigue. Patient reported that two days prior to admission , he was working behind the [employer] and he felt lightheaded and then his tongue became heavy for approximately 1 minute. This has never occurred to him before, and has not occurred since. Patient describes his body feeling more tired since that event. He also notes that he is slower to adjust his lateral gaze. He denies any dizziness, any changes in sensation, nausea, vomiting, headaches, and recent illnesses. Patient does endorse a significant alcohol history where he binges for periods at a time and then stops drinking. He does not feel that his weakness and tiredness is related to his alcohol intake in anyway. Head CT completed which indicates wedge shaped area of low attenuation in right frontoparietal lobe near the convexity likely representing infarction possibly subacute. There is a possible intraluminal thrombus mentioned but symptoms > 48 hours. Contacted by ER at 2am on 09/01, discussed with Dr. Burch, patient out of window for TPA and out of window for endovascular therefore admitted for CVA work up. Cartoid Doppler ordered. LDL level elevated 138, pt on statin 40mg daily, BUN slightly elevated at 19. AST/ALT levels elevated 43/ 71. Discussed with patient need for further work up. Does not take a daily ASA and advised ASA 81mg daily and patient in agreement. Very eager to leave. Also discussed with hospitalist who was trying to speak with family to convince patient to stay and complete remainder of work up. Echo may not be completed until Tuesday. Advised patient that remaining in hospital for work up is in his best interest as he has CVA noted on imaging. Brain MRI/MRA completed, abnormal restricted diffusion with nyperintense flair in the frontal lob involving precentral gyrus indicating acute infarct; patent central segments of the anterior and posterior circulation with no significant stenosis, mild chronic microvascular ischemic changes. Carotid Doppler completed, intimal thickening and small plaques at the left common carotid bifurcation with significant stenosis bilaterally. Echo pending and hopefully to be completed Tuesday. Again, discussed with patient the importance of medication compliance and since we initiated aspirin 81 mg daily. I reinforced to him that it should be continued as an outpatientprovided card with my office information. He reports being at baseline and without any deficits. Etoh cessation recommended, monitor for withdrawal given history of Etoh use. LDL 138, continue statin, goal LDL < 70. Monitor bp, maintain less than 160/90. Monitor glucose, maintain euglycemic range.
[2019-09-03] MEDS ORDERED: PT OWN MED DRAWER 7, Y5N ONE (10:25)
--- NOTE | 2019-09-03 11:20 | CONSULT ---
Admitting History and Physical - Primary Care Physician PCP: Genaro Cespedes - Admission History of Present Illness: Per EMR- 64 male with a past medical history of HTN, DM II, EtOH abuse, who presents with generalized weakness and transient episode of tongue heaviness admitted for ischemic stroke workup Per EMR-Current EtOH drinkerabout 3x 200 cc bottles of liquor a week, complain of generalized weakness for the past 2 days.He said that about 3 days ago he had an episode of tongue heaviness which lasted a few seconds and quickly went away. CT Head shows right frontoparietal area of low attenuation carotid doppler noting small plaques and intimal thickening at the L common carotid bifurcation with NO hemodynamically significant stenosis bilaterally Brain MRI noting acute nonhemorrhagic R distal MCA infarct involving precentral gyrus Selected Entries 09/02/19 09/02/19 09/02/19 03:43 10:00 12:08 Breakfast 100% Diet Tolerated Well Temperature 98.2 F 97.2 F L 09/02/19 09/02/19 09/03/19 14:00 21:00 02:00 Breakfast 100% Diet Tolerated Well Temperature 98.0 F 98.2 F 97.7 F 09/03/19 09/03/19 05:19 10:00 Breakfast 100% Diet Tolerated Well Temperature 98.1 F Laboratory Tests 08/31/19 23:20 WBC 5.7 History Source: Patient, Medical Record Limitations to Obtaining History: No Limitations - Smoking History Smoking history: Never smoked Have you smoked in the past 12 months: No - Alcohol/Substance Use Hx Alcohol Use: Yes (1 DRINK DAILY) History - Admission Reason For Visit: CEREBROVASCULAR ACCIDENT (CVA) - Diagnostics X-ray: Report Reviewed CT Scan: Report Reviewed MRI: Report Reviewed - General Mental Status: Alert and Oriented, Awake and Alert, Able to Follow Commands Attention: Intact Ability to Follow Directions: Excellent Head/Neck Control: WFL - Hearing Hearing: Normal Hearing Aide: No With Patient: No Speech Evaluation - Communication Primary Language: NEPALESE Communication: Yes: Within Normal Limits Oral Expression Ability: Yes: No Impairment - Speech Production Able to Make Needs Known: Yes: WNL Intelligibility: Yes: WNL - Speech Characteristics Voice Loudness: Normal Voice Pitch: Yes: Normal Voice Phonatory-based Quality: Yes: Normal Speech Pattern: Normal Speech Clarity: < 100% Nasal Resonance: Normal Articulation: Yes: Precise Rate of Speech: Intact - Language/Auditory Comprehension Follows: Yes: 2 Stage Simple Commands - Language/Verbal Expression Able to Respond to Simple Queries: Yes: WNL Able to Communicate Wants and Needs: Yes: WNL Functional Communication Status: Yes: WNL - Swallow Evaluation/Bedside Assessment Current Nutritional Intake: Regular, Thin Liquids Oral Secretions: Yes: WFL Dentition: Yes: Adequate Facial Symmetry at Rest: Symmetrical Facial Symmetry on Retraction: Symmetrical Facial Movement: Controlled Sensation: Normal Against Resistance Opening: Normal Against Resistance Closing: Normal Pucker Lips: Normal Smile: Normal Lingual Movement: Normal, Symmetric Lingual Speed of Movement: Normal Lingual Movement Strgth Against Opposition: Normal Lingual Movement Characteristics: Normal Velopharyngeal Movement: Normal Laryngeal Elevation: WFL Laryngeal Movement: Able to Palpate Rate of Intake: WFL Bolus Size: WFL Labial Seal: WFL Chewing: WFL Oral Prep Time: WFL A-P Transit: WFL Timing of Swallow: WFL Coughing/Throat Clear: No Change in Voice: No Recommendations - Speech Evaluation, Impression/Plan Impression: Speech, swallowing, languag, cognition at baseline. - Dysphagia Impressions/Plan Swallowing Skills: WFL Dysphagia Impressions: No Impairment *Silent aspiration: cannot be R/O at bedside - Recommendations Diet Consistency: Regular Medication Administration: Whole with water Liquids: Thin Liquids
[2019-09-03] MEDS: ASPIRIN COATED 81 MG TABLET.EC PO SCH (11:59)
[2019-09-03] MEDS: THIAMINE HCL 100 MG TABLET (FP) PO SCH (11:59)
[2019-09-03] MEDS: FOLIC ACID 1 MG TABLET (FP) PO SCH (11:59)
[2019-09-03] MEDS: MULTIVITAMINS (DAILY MVI) TABLET (FP) PO SCH (11:59)
--- NOTE | 2019-09-03 12:11 | ECHO ---
Name: CHAIM DOMINGUEZ Exam:Adult Echocardiogram Study Date: 09/03/2019 10:13 AM Age: 64 yrs Reason For Study: R/O CVA/TIA/Stroke Bubble Study Height: 65 in Weight: 172 lb BSA: 1.9 m2 MMode/2D Measurements & Calculations IVSd: 1.2 cm Ao root diam: 2.5 cm LVIDd: 3.6 cm LA dimension: 3.7 cm LVIDs: 2.4 cm ACS: 1.8 cm LVPWd: 1.3 cm EDV(Teich): 55.3 ml LVOT diam: 1.9 cm ESV(Teich): 21.1 ml RV S John: 10.8 cm/sec Doppler Measurements & Calculations MV E max john: 72.7 cm/sec Ao V2 max: 149.6 cm/sec MV A max john: 92.2 cm/sec Ao max P.0 mmHg MV E/A: 0.79 MV dec time: 0.17 sec BAUDILIO(V,D): 1.5 cm2 LV V1 max P.6 mmHg SV(LVOT): 45.4 ml LV V1 mean P.4 mmHg LV V1 max: 81.0 cm/sec LV V1 mean: 54.8 cm/sec LV V1 VTI: 16.8 cm TR max john: 170.0 cm/sec PA V2 max: 63.2 cm/sec TR max P.0 mmHg PA max P.6 mmHg Med Peak E' John: 6.0 cm/sec Med E/e': 12.0 Lat Peak E' John: 7.7 cm/sec Lat E/e': 9.4 Procedure A complete two-dimensional transthoracic echocardiogram was performed (2D, M-mode, Doppler and color flow Doppler). Technically limited study. Left Ventricle The left ventricle is normal in size. There is mild concentric left ventricular hypertrophy. Left arun tricular systolic function is normal. Ejection Fraction = 60-65%. Grade I diastolic dysfunction, (abnormal rel axation pattern). Ratio E/E'= 12. No regional wall motion abnormalities noted. Right Ventricle The right ventricle is normal size. The right ventricular systolic function is normal. Atria The left atrial size is normal. Right atrial size is normal. Mitral Valve There is mild mitral annular calcification. There is mild mitral valve thickening. There is no mitral regurgitation noted. Tricuspid Valve The tricuspid valve is normal in structure and function. There is mild tricuspid regurgitation. Right ventricular systolic pressure is normal. Aortic Valve There is mild aortic sclerosis.;. No aortic regurgitation is present. Pulmonic Valve The pulmonic valve is not well visualized. Mild pulmonic valvular regurgitation. Great Vessels The aortic root is normal size. Pericardium/Pleura There is no pericardial effusion. Interpretation Summary Technically limited study The left ventricle is normal in size. There is mild concentric left ventricular hypertrophy. Left ventricular systolic function is normal. No regional wall motion abnormalities noted. Ejection Fraction = 60-65%. Grade I diastolic dysfunction, (abnormal relaxation pattern). Ratio E/E'= 12 The right ventricular systolic function is normal. The left atrial size is normal. Right atrial size is normal. There is mild mitral annular calcification. There is mild mitral valve thickening. There is mild tricuspid regurgitation. Right ventricular systolic pressure is normal. There is mild aortic sclerosis. Mild pulmonic valvular regurgitation. There is no pericardial effusion. Montana Cody MD 09/03/2019 12:10 PM
--- NOTE | 2019-09-03 15:05 | DS ---
Physical Exam: SUBJECTIVE: Patient seen and examined at the bedside. Patient notes that he feels better and denies any acute complaints of focal weakness, numbness, tingling, dizziness, lightheadedness, headaches, chest pain, shortness of breath , abd pain, n/v/c/d, fever, chills. OBJECTIVE: Vital Signs Period Temp Pulse Resp BP Sys/Curtis Pulse Ox Last 24 Hr 97.7 F-98.2 F 67-82 8-20 110-124/- 97 PHYSICAL EXAM GENERAL: The patient is awake, alert, and fully oriented, in no acute distress. HEAD: Normal with no signs of trauma. EYES: PERRL, extraocular movements intact, sclera anicteric, conjunctiva clear. ENT: Oropharynx clear without exudates, moist mucous membranes. NECK: Trachea midline, full range of motion, supple. No auscultated bruits. LUNGS: Breath sounds equal, clear to auscultation bilaterally, no wheezes, no crackles, no accessory muscle use. HEART: Regular rate and rhythm, S1, S2 without murmur, rub. ABDOMEN: Soft, nontender, nondistended, normoactive bowel sounds, no guarding, no rebound, no masses. EXTREMITIES: 2+ pulses, warm, well-perfused, no edema. NEUROLOGICAL: Noted assymetry of smile with minute droop on L. CN II-XII otherwise grossly intact. 5/5 muscle strength upper and lower extremities bilaterally. No sensory deficits. FTN and HTS intact. PSYCH: Normal mood, normal affect. SKIN: Warm, dry, normal turgor, no rashes or lesions noted. LABS Laboratory Results - last 24 hr 09/02/19 09/02/19 09/03/19 17:28 21:48 05:16 POC Glucometer 186 183 148 09/03/19 12:08 POC Glucometer 175 HOSPITAL COURSE: Los Chung is a 64 male with a past medical history of HTN, DM II, EtOH abuse, who presents with generalized weakness and transient episode of tongue heaviness admitted for ischemic stroke workup. Patient had a CT which showed a right frontoparietal area of low attenuation. MRI showed nonhemorrhagic R distal MCA infarct involving precentral gyrus. Carotid dopplers showed small plaques and intimal thickening at the L common carotid bifurcation with NO hemodynamically significant stenosis bilaterally. Patient was found with elevated cholesterol, LDL. Echo showed mild LVH, grade I diastolic dysfunction, mild aortic sclerosis, mild tricuspid regurg, mild mitral thickening, mild annular calcification. Patient was started on aspirin and Lipitor 40mg due to elevated LFTs. Seen by neurology who recommended to be compliant with aspirin and statin and f/u outpatient. Had elevated LFTs and liver U/S showed fatty liver vs hepatocellular disease and showed Hep antigen. Patient was advised to follow up with GI outpatient. Was advised to cease drinking alcohol. Patient was advised to take all of his prescribed medication regularly, supplement with folate, thiamine, MVI, and to see f/u with PCP, GI, neurology, cardiology. Patient was explained the plan, was in agreement, and reiterated the plan. Patient was discharged in stable medical condition. Date of Admission:09/01/19 Date of Discharge: 09/03/19 Minutes to complete discharge: 35 Discharge Summary Problems reviewed: Yes Reason For Visit: CEREBROVASCULAR ACCIDENT (CVA) Current Active Problems Stroke (Chronic) Condition: Improved - Instructions Diet, Activity, Other Instructions: You were admitted after you had weakness and tongue heaviness. You had CT scan of the head which showed some areas of abnormality. You had an MRI of the brain which shows that you had a stroke in one of the parts of your brain. You were seen by a neurologist (brain doctor) who recommended that you start taking aspiring and a cholesterol medication. You had a carotid (neck artery) ultrasound which showed some plaques in your arteries but nothing was significantly impacting the bloodflow in your brain. You will need to follow up with the neurologist outpatient. You had an echocardiogram (ultrasound of the heart) which showed mild increase in your heart size, abnormal relaxation of your heart, and some valve dysfunction. You will need to follow up with a experience specialist for these findings. You were found to have elevated liver blood tests. You had a ultrasound of your liver which showed some abnormalities. You are advised to not drink alcohol and follow up with a grill chef (stomach, liver, intestine doctor). MEDICATIONS START taking aspirin 81mg daily. START taking Lipitor 40mg daily. START taking thiamine 100mg daily. START taking a Multivitamin daily. START taking folic acid 1mg daily. REFERRALS Please see your primary care physician, Dr. Colton Whyte, within 1 week. Please see the neurologist, Dr. Julio Newsome, within 1 week. Please see the grill chef, Dr. Fermin Beltran, within 1 week. Your Hepatitis Please see the experience specialist, Dr. Montana Cody, within 1 week. SPECIAL INSTRUCTIONS Please follow up with your primary care doctor for Liver function tests within 1 week to determine if you can increase your dose of Lipitor. It is important that you take all of your medications, follow up with your doctors, do not smoke, do not drink to prevent any further episodes of a stroke. If you have any symptoms of weakness, slurred speech, difficulty with your vision, dizziness, lightheadedness, numbness, tingling, chest pain, shortness of breath, or any other general feelings of unwellness, please call 911 or go to your nearest emergency room. Referrals: Colton Whyte [Other] - 1 Week Teo Beltran DO [Staff Physician] - 1 Week Montana Cody MD [Staff Physician] - 1 Week Julio Newsome MD [Staff Physician] - 1 Week Disposition: HOME - Home Medications Comprehensive Discharge Medication List: Ambulatory Orders metFORMIN HCL [Metformin HCl] 500 mg PO BID 09/01/19 Aspirin 81 mg PO DAILY #30 tab.chew 09/02/19 Atorvastatin Ca [Lipitor] 40 mg PO HS #30 tablet 09/02/19 Folic Acid - 1 mg PO DAILY #30 tablet 09/02/19 Multivitamins [Multivit ([facility] Formulary)] 1 tab PO DAILY #30 tab 09/02/19 Thiamine HCl [Vitamin B1 -] 100 mg PO DAILY #30 tablet 09/02/19 Problem List - Problems (1) Stroke Code(s): I63.9 - CEREBRAL INFARCTION, UNSPECIFIED Qualifiers: CVA mechanism: unspecified Qualified Code(s): I63.9 - Cerebral infarction, unspecified This patient is new to me today: No Emergency Visit: Yes ED Registration Date: 09/01/19 Care time: The patient presented to the Emergency Department on the above date and was hospitalized for further evaluation of their emergent condition. Critical Care patient: No - Discharge Referral Referred to [facility] Med P.C.: No
[2019-09-03 15:37] VITALS: BP 138/72; PULSE 83
[2019-09-03 16:22] VITALS: TEMP 97.4
--- NOTE | 2019-09-03 16:52 | PN ---
Teaching Attending Note Name of Resident: Nimesh Palencia ATTENDING PHYSICIAN STATEMENT I saw and evaluated the patient. I reviewed the resident's note and discussed the case with the resident. I agree with the resident's findings and plan as documented. SUBJECTIVE: Feels better - no further tongue heaviness. No headache/visual disturbance/limb numbness, weakness, tingling. OBJECTIVE: Afebrile, Hemodynamically Stable. Last Vital Signs Temp Pulse Resp BP Pulse Ox 97.4 F L 83 20 138/72 96 09/03/19 10:00 09/03/19 14:00 09/03/19 14:00 09/03/19 14:00 09/03/19 09:00 Heart - S1 S2 RRR Lungs - clear to auscultation Abdomen - soft, non-tender. Bowel Sounds normal. Extremities - no calf swelling/tenderness Neuro - AAO x 3. Tone/Power normal all extremities. Laboratory Results - last 24 hr 09/02/19 09/02/19 09/03/19 17:28 21:48 05:16 POC Glucometer 186 183 148 09/03/19 12:08 POC Glucometer 175 Discharge Medications Medication Instructions Recorded metFORMIN HCL [Metformin HCl] 500 mg PO BID 09/01/19 Aspirin 81 mg PO DAILY #30 tab.chew 09/02/19 Atorvastatin Ca [Lipitor] 40 mg PO HS #30 tablet 09/02/19 Folic Acid - 1 mg PO DAILY #30 tablet 09/02/19 Multivitamins [Multivit ([facility] 1 tab PO DAILY #30 tab 09/02/19 Formulary)] Thiamine HCl [Vitamin B1 -] 100 mg PO DAILY #30 tablet 09/02/19 ASSESSMENT/PLAN: 64 year old male with history of DM 2, Ex-smoker, current Alcohol excess, admitted with generalized weakness and reported tongue heaviness 2 days prior to presentation, now resolved. No BURGESS/dizziness/limb numbness/weakness/tingling. No visual disturbance. CT Head - positive for cerebral atrophy, chronic microvascular ischemic changes. Wedge-shaped area of low attenuation in the right frontoparietal lobe near the convexity likely representing an infarction, possibly subacute. Slight hyperdensity of the right perisylvian middle cerebral artery branch could represent intraluminal thrombus. 1. Acute CVA No discernible deficits No telemonitoring events. Echo - normal EF, LVH. MRI/MRA Brain - confirms acute non-hemorrhagic distal R MCA territory infarct. Carotid Duplex - L common carotid plaque without hemodynamically significant stenosis. LDL 138 (goal < 70) Started on Aspirin/Statin (started at 40mg instead of 80mg due to elevated transaminases). Repeat LFTs in 3 weeks. Slow up-titration of Statin as out- patient. Neuro follow-up as out-patient. 2. DM 2 - Uncontrolled, A1C 7.3. Resumed on Metfromin on discharge. 3. Elevated Transaminases in setting of Alcohol Excess Hx No signs of withdrawal - will monitor. MVI/Thiamine/Folate. Abdo US - fatty liver Hep Bs Ag positive unclear significance - for referral to GI as out-patient for further work-up. Medically and Neurologically stable for discharge
== END 2019-09-03 15:35 | disposition home or self-care (01) | DRG 45 ==
LOC: JER 21:27 → JERBED 09-01 01:04 → J4W 09-01 19:51
PROVIDERS: ADMIT Internal Medicine
DX: I63.9 Cerebral infarction, unspecified (principal); E11.65 Type 2 diabetes mellitus with hyperglycemia; Z87.891 Personal history of nicotine dependence; F10.10 Alcohol abuse, uncomplicated; I10 Essential (primary) hypertension; R74.0 Nonspecific elevation of levels of transaminase and lactic acid dehydrogenase [LDH]; Z79.84 Long term (current) use of oral hypoglycemic drugs; K76.0 Fatty (change of) liver, not elsewhere classified
CPT/HCPCS: 36415; 70450-TC; 70544-TC; 70551-TC; 76705-TC; 80053; 80061; 80074; 81003; 82962; 83036; 83721; 84484; 85025; 93005; 93010; 93306-TC; 93880-TC; 97116-GP; 97161-GP; 99285-25; J1644; J7030

== ENCOUNTER 2021-08-21 09:34 | Emergency (ER) | payer OTHER ==
[2021-08-21 09:42] VITALS: TEMP 97.2; BMI 30.9
[2021-08-21 12:40] LABS: BASO % 0.6 % (0-2.0); EOS % 1.3 % (0-4.5); HEMATOCRIT 40.2 % (35.4-49); HEMOGLOBIN 13.6 GM/dL (11.7-16.9); LYMPH % 42.6 % (8-40); MCH 29.7 pg (25.7-33.7); MCHC 33.9 g/dl (32.0-35.9); MEAN CELL VOLUME 87.7 fl (80-96); MEAN PLT VOLUME 9.1 fl (7.5-11.1); MONO % 11.4 % (3.8-10.2); NEUT % 44.1 % (42.8-82.8); PLATELET COUNT 259 10^3/uL (134-434); RBC 4.58 M/mm3 (4.00-5.60); RDW 13.4 % (11.9-15.9); WHITE BLOOD COUNT 4.6 K/mm3 (4.0-10.0)
[2021-08-21 12:58] LABS: CALCIUM 9.2 mg/dL (8.5-10.1)
[2021-08-21 12:59] LABS: ALBUMIN 4.1 g/dl (3.4-5.0); BLOOD UREA NITROGEN 13.9 mg/dL (7-18)
[2021-08-21 13:02] LABS: CREATININE 0.8 mg/dL (0.55-1.3)
[2021-08-21 13:03] LABS: BILIRUBIN,TOTAL 0.6 mg/dL (0.2-1); TOT PROT 7.4 g/dl (6.4-8.2)
[2021-08-21 14:54] VITALS: PULSE 84
[2021-08-21 15:28] VITALS: BP 125/72
== END 2021-08-21 15:36 | disposition home or self-care (01) ==
LOC: JER 09:34
DX: I10 Essential (primary) hypertension (principal)
CPT/HCPCS: 36415; 70450-TC; 80053; 82962; 84443; 85025; 93005; 93010; 99285-25